=== PATIENT | female | born 2000 | race Caucasian/White ===

== ENCOUNTER 2019-08-11 05:35 | Outpatient (CLI) | payer OTHER ==
[~2019-08-11] VITALS: Ht 165 cm; Wt 63.6 kg
[~2019-08-11 05:35] MED LIST: FAMO20TA5 PO; FAMO40OR3 PO; PRD20T PO; SMXTMP10ML PO
== END 2019-08-11 11:25 | disposition home or self-care (01) ==
LOC: PREOP 05:35
PROVIDERS: ATTEND Otolaryngology Otolaryngology/Facial Plastic Surgery
DX: Z01.818 Encounter for other preprocedural examination (principal)

== ENCOUNTER 2019-08-18 08:26 | Day surgery (SDC) | payer MEDICAID, OTHER ==
[2019-08-18] VITALS (11 sets, daily range): BP systolic 88–131; BP diastolic 46–87
[~2019-08-18] VITALS: Ht 165 cm; Wt 63.6 kg
[2019-08-18] MEDS ORDERED: MIDAZOLAM 2 MG/2 ML (VERSED) VIAL IV ONE (08:45)
[2019-08-18] MEDS: LACTATED RINGERS 1,000 ML IV PRN ×2 (08:52→10:45)
[2019-08-18 09:00] LABS: BASOPHILS % (AUTO) 0 % (0-10); EOSINOPHILS # (AUTO) 0.1 10^3/uL (0.0-0.3); EOSINOPHILS % (AUTO) 1 % (0-10); HEMATOCRIT 45 % (35-52); HEMOGLOBIN 15.6 G/DL (11.5-16.0); LYMPHOCYTES # (AUTO) 2.6 X 10^3 (1.0-4.0); LYMPHOCYTES % (AUTO) 39 % (12-44); MEAN CORPUSCULAR HEMOGLOBIN 30 PG (25-34); MEAN CORPUSCULAR HGB CONC 34 G/DL (32-36); MEAN CORPUSCULAR VOLUME 86 FL (80-99); MEAN PLATELET VOLUME 10.7 FL (7.4-10.4); MONOCYTES # (AUTO) 0.5 X 10^3 (0.0-1.0); MONOCYTES % (AUTO) 8 % (0-12); NEUTROPHILS # (AUTO) 3.6 X 10^3 (1.8-7.8); NEUTROPHILS % (AUTO) 53 % (42-75); PLATELET COUNT 213 10^3/uL (130-400); RED CELL DISTRIBUTION WIDTH 11.9 % (10.0-14.5); WHITE BLOOD COUNT 6.8 10^3/uL (4.3-11.0)
--- NOTE | 2019-08-18 09:50 | Progress Note-Pre Operative ---
Pre-Operative Progress Note H&P Reviewed The H&P was reviewed, patient examined and no changes noted. Date Seen by Provider: Aug 18, 2019 Time Seen by Provider: 09:15 Date H&P Reviewed: Aug 18, 2019 Time H&P Reviewed: 09:15 Pre-Operative Diagnosis: Rec Tonsillitis MARIELA BARR MD Aug 18, 2019 09:50
[2019-08-18] MEDS ORDERED: fentaNYL INJECTION 100 MCG/2 ML AMP ONE (09:55)
[2019-08-18] MEDS ORDERED: MIDAZOLAM 2 MG/2 ML (VERSED) VIAL ONE (09:56)
[2019-08-18] MEDS ORDERED: DEXAMETHASONE 10 MG/ML (DECADRON) 1 ML VIAL ONE (10:34)
[2019-08-18] MEDS ORDERED: proPOfol 200 MG/20 ML (DIPRIVAN) VIAL IV ONE (10:34)
[2019-08-18] MEDS ORDERED: ONDANSETRON 4 MG/2 ML (SDV) Z0FRAN ONE (10:34)
[2019-08-18] MEDS ORDERED: LIDOCAINE PF 2% 5 ML (XYLOCAINE) VIAL ONE (10:34)
[2019-08-18] MEDS ORDERED: SEVOFLURANE (ULTANE) 15 ML INHAL SOLN ONE (10:41)
[2019-08-18] MEDS ORDERED: NS IV 1000 ML 1,000 ML IV SCH (10:49)
--- NOTE | 2019-08-18 10:49 | Progress Note-Post Operative ---
Post-Operative Progess Note Surgeon (s)/Mail Room Clerk (s) Surgeon MARIELA BARR MD Mail Room Clerk n/a Pre-Operative Diagnosis Rec Tonsillitis Post-Operative Diagnosis same Post-Op Procedure Note Date of Procedure: Aug 18, 2019 Name of Procedure Performed: Tonsillectomy Description & Findings Description and Findings: n/a Anesthesia Type get Estimated Blood Loss minimal Packing none. Specimen(s) collected/removed tonsils MARIELA BARR MD Aug 18, 2019 10:49
[2019-08-18] MEDS ORDERED: APAP 325 MG/10.15 ML LIQ (TYLENOL) UDC PO PRN (11:00)
[2019-08-18] MEDS ORDERED: HYDROcodone/APAP 7.5MG-325 MG/15 ML (LORTAB) UDC PO PRN (11:00)
[2019-08-18] MEDS ORDERED: MEPERIDINE (DEMEROL) INJ 50 MG/ML IVP ONE (11:00)
[2019-08-18] MEDS ORDERED: fentaNYL INJECTION 100 MCG/2 ML AMP IVP ONE (11:00)
[2019-08-18] MEDS ORDERED: ONDANSETRON 4 MG/2 ML (SDV) Z0FRAN IVP PRN (11:00)
[2019-08-18] MEDS ORDERED: morphine INJ 10 MG/ML 1ML (SYR OR VIAL) IVP ONE (11:00)
[2019-08-18] MEDS ORDERED: HYDR15SO8 PO (12:50)
[2019-08-18] MEDS ORDERED: TETRACAINESUCKERS MT (12:50)
[2019-08-18] MEDS ORDERED: AZIT200S47 PO (12:50)
[2019-08-18] MEDS ORDERED: DEXAINTSOL PO (12:50)
== END 2019-08-18 13:35 | disposition home or self-care (01) ==
LOC: SDC 08:26
PROVIDERS: ATTEND Otolaryngology Otolaryngology/Facial Plastic Surgery
DX: J35.01 Chronic tonsillitis (principal); Z88.1 Allergy status to other antibiotic agents
CPT/HCPCS: 36415; 84703; 85025; 88304

== ENCOUNTER 2020-04-29 18:51 | Emergency (ER) | payer SELFPAY ==
[~2020-04-29] VITALS: Ht 166 cm; Wt 62.0 kg
[~2020-04-29 18:51] MED LIST changes: +AZIT200S47 PO; +DEXAINTSOL PO; +HYDR15SO8 PO; +TETRACAINESUCKERS MT
--- NOTE | 2020-04-29 19:11 | ED Headache ---
General Chief Complaint: Head/Cervical Problems Stated Complaint: MIGRAINE;NAUSEA;FATIGUE Nursing Triage Note: PT STATES SHE HAS HAD A MIGRAINE SINCE 04/08, HX OF MIGRAINES Nursing Sepsis Screen: No Definite Risk Source: patient Exam Limitations: no limitations History of Present Illness Date Seen by Provider: Apr 29, 2020 Time Seen by Provider: 19:09 Initial Comments Migraine headache since 04/08. She has a history of migraines and would typically get them less than once a month. Since April 08 however this particular migraine seems to have not gone away. No fever no chills no visual symptoms but she does report nausea and vomiting. No cough no shortness of breath she does not have a primary care provider. She has been to to urgent cares but has been unable to find a solution for these migraines. Timing/Duration: 1 week, other Severity/Quality: moderate Prior Headaches/Recent Trauma: no recent headache/trauma Associated Symptoms: denies symptoms Allergies and Home Medications Allergies Coded Allergies: amoxicillin (Verified Allergy, Mild, HIVES, 08/11/19) Home Medications Azithromycin 200 Mg/5 Ml Susp.recon, 1 TSP PO DAILY Prescribed by: JOSE C DOWNING on 08/18/19 1250 Butalbital/Aspirin/Caffeine 1 Each Capsule, 1 EACH PO Q4H PRN for PAIN-SEVERE (8-10) Prescribed by: SMILEY STALLWORTH on 04/29/201951 Dexamethasone 1 Mg/1 Ml Keyonna, 2 TSP PO DAILY PRN for PAIN Mix 4MG/2.5CC water Prescribed by: JOSE C DOWNING on 08/18/19 1250 Hydrocodone/Acetaminophen 15 Ml Solution, 1.5 TSP PO Q4H 8 OZ BOTTLE Prescribed by: JOSE C DOWNING on 08/18/19 1250 Tetracaine Sucker Ea, 1 EA MT UD PRN for PAIN Tetracain Suckers These suckers are custom made and require a prescription. Moisten the sucker first and then suck on it gently as far back in the mouth as possible for 2-3 days. You can repeadt it in about an hour. This will take the edge off but not completely numb the throat. Prescribed by: JOSE C DOWNING on 08/18/19 1250 Patient Home Medication List Home Medication List Reviewed: Yes Review of Systems Review of Systems Constitutional: see HPI; No chills, No fever Eyes: No Symptoms Reported; Denies Blindness, Denies Blurred Vision, Denies Decreased Acuity Ears, Nose, Mouth, Throat: no symptoms reported Respiratory: see HPI; No short of breath Genitourinary: no symptoms reported Musculoskeletal: no symptoms reported Skin: no symptoms reported Psychiatric/Neurological: No Symptoms Reported Past Cgjrtfd-Xmdrlc-Agnscp Hx Patient Social History 2nd Hand Smoke Exposure: No Recent Foreign Travel: No Contact w/Someone Who Travel: No Recent Infectious Disease Expo: No Recent Hopitalizations: No Seasonal Allergies Seasonal Allergies: No Past Medical History Surgeries: Yes (WISDOM TEETH) Respiratory: No Cardiac: No Neurological: No : No Last Menstrual Period: Apr 19, 2020 Reproductive Disorders: No Sexually Transmitted Disease: No HIV/AIDS: No Genitourinary: No Gastrointestinal: No Musculoskeletal: No Endocrine: No HEENT: Yes (CONTACTS ) Cancer: No Psychosocial: No Integumentary: No Blood Disorders: No Adverse Reaction/Blood Tranf: No (N/A) Physical Exam Vital Signs Vital Signs - First Documented 04/29/20 19:04 Temp 36.2 Pulse 111 Resp 20 B/P (MAP) 134/96 (109) Pulse Ox 98 O2 Delivery Room Air Capillary Refill : Less Than 3 Seconds Height, Weight, BMI Height: 5'3" Weight: 120lbs. oz. [id number]; 22.00 BMI Method:Stated General Appearance: WD/WN, no apparent distress HEENT: PERRL/EOMI, normal ENT inspection Respiratory: normal breath sounds, no respiratory distress, no accessory muscle use Extremities: normal range of motion, non-tender Crainal Nerves: normal hearing, normal speech, PERRL (I think the last when I did was Topamax) Skin: normal color, warm/dry Progress/Results/Core Measures Results/Orders Lab Results Laboratory Tests Test 04/29/20 19:10 Range/Units White Blood Count 7.9 4.3-11.0 10^3/uL Red Blood Count 5.02 4.35-5.85 10^6/uL Hemoglobin 14.8 11.5-16.0 G/DL Hematocrit 41 35-52 % Mean Corpuscular Volume 83 80-99 FL Mean Corpuscular Hemoglobin 30 25-34 PG Mean Corpuscular Hemoglobin Concent 36 32-36 G/DL Red Cell Distribution Width 11.8 10.0-14.5 % Platelet Count 220 130-400 10^3/uL Mean Platelet Volume 10.7 H 7.4-10.4 FL Neutrophils (%) (Auto) 46 42-75 % Lymphocytes (%) (Auto) 44 12-44 % Monocytes (%) (Auto) 8 0-12 % Eosinophils (%) (Auto) 2 0-10 % Basophils (%) (Auto) 0 0-10 % Neutrophils # (Auto) 3.7 1.8-7.8 X 10^3 Lymphocytes # (Auto) 3.5 1.0-4.0 X 10^3 Monocytes # (Auto) 0.6 0.0-1.0 X 10^3 Eosinophils # (Auto) 0.1 0.0-0.3 10^3/uL Basophils # (Auto) 0.0 0.0-0.1 10^3/uL Sodium Level 140 135-145 MMOL/L Potassium Level 3.3 L 3.6-5.0 MMOL/L Chloride Level 104 98-107 MMOL/L Carbon Dioxide Level 25 21-32 MMOL/L Anion Gap 11 5-14 MMOL/L Blood Urea Nitrogen 9 7-18 MG/DL Creatinine 0.90 0.60-1.30 MG/DL Estimat Glomerular Filtration Rate > 60 BUN/Creatinine Ratio 10 Glucose Level 102 70-105 MG/DL Calcium Level 9.8 8.5-10.1 MG/DL Corrected Calcium 8.5-10.1 MG/DL Total Bilirubin 0.4 0.1-1.0 MG/DL Aspartate Amino Transf (AST/SGOT) 17 5-34 U/L Alanine Aminotransferase (ALT/SGPT) 13 0-55 U/L Alkaline Phosphatase 93 40-136 U/L Total Protein 7.6 6.4-8.2 GM/DL Albumin 4.6 H 3.2-4.5 GM/DL Serum Test, Qualitative NEGATIVE NEGATIVE My Orders Orders - SMILEY STALLWORTH APRN Cbc With Automated Diff (04/29/20 19:07) Comprehensive Metabolic Panel (04/29/20 19:07) Ct Head Wo (04/29/20 19:07) Ns Iv 1000 Ml (Sodium Chloride 0.9%) (04/29/20 19:15) Ketorolac Injection (Toradol Injection) (04/29/20 19:15) Prochlorperazine Injection (Compazine In (04/29/20 19:15) Diphenhydramine Injection (Benadryl Inje (04/29/20 19:15) Hcg,Qualitative Serum (04/29/20 19:08) Medications Given in ED Current Medications Medications Dose Ordered Sig/Isabella Route Start Time Stop Time Status Last Admin Dose Admin Diphenhydramine HCl 25 mg ONCE ONCE IVP 04/29/20 19:15 04/29/20 19:16 DC 04/29/20 19:15 25 MG Ketorolac Tromethamine 15 mg ONCE ONCE IVP 04/29/20 19:15 04/29/20 19:16 DC 04/29/20 19:15 15 MG Prochlorperazine Edisylate 5 mg ONCE ONCE IV 04/29/20 19:15 04/29/20 19:16 DC 04/29/20 19:15 5 MG Vital Signs/I&O 04/29/20 19:04 Temp 36.2 Pulse 111 Resp 20 B/P (MAP) 134/96 (109) Pulse Ox 98 O2 Delivery Room Air Blood Pressure Mean: 109 Departure Communication (Admissions) 2017-she states that on arrival her pain was 10 out of 10. Currently she rates it 1 out of 10. She is smiling and alert and states that she feels quite a bit better. We'll have her follow up with Dr. Maria this week as she already has scheduled. I did send in some Fiorinal to use on a when necessary basis in the interim. Impression Primary Impression: Headache Qualified Codes: R51 - Headache Disposition: 01 HOME, SELF-CARE Condition: Stable Departure-Patient Inst. Decision time for Depature: 19:50 Referrals: NO,LOCAL PHYSICIAN (PCP) Primary Care Physician Patient Instructions: Headache, Adult (DC) Add. Discharge Instructions: 1. Follow-up with your regular doctor 2. Use medication as needed 3. Return to ER for any concerns. If you do not have a regular doctor call one of the doctors listed to make an appointment to be seen for follow-up. All discharge instructions reviewed with patient and/or family. Voiced understanding. Scripts Butalbital/Aspirin/Caffeine (Fiorinal 50-325-40 mg Capsule) 1 Each Capsule 1 EACH PO Q4H PRN for PAIN-SEVERE (8-10), #14 CAP Prov: STALLWORTH,PETER J ER[employer]ION CONTROL COORDINATOR 04/29/20 SMILEY STALLWORTH APRN Apr 29, 2020 19:11
[2020-04-29] MEDS ORDERED: KETOROLAC 30 MG/ML VIAL IVP ONE (19:15)
[2020-04-29] MEDS ORDERED: PROCHLORPERAZINE 10 MG/2ML INJ (COMPAZINE) IV ONE (19:15)
[2020-04-29] MEDS ORDERED: diphenhydrAMINE 50 MG/ML INJ (BENADRYL) IVP ONE (19:15)
[2020-04-29] MEDS ORDERED: NS IV 1000 ML 1,000 ML IV SCH (19:15)
[2020-04-29 19:17] LABS: BASOPHILS % (AUTO) 0 % (0-10); EOSINOPHILS # (AUTO) 0.1 10^3/uL (0.0-0.3); EOSINOPHILS % (AUTO) 2 % (0-10); HEMATOCRIT 41 % (35-52); HEMOGLOBIN 14.8 G/DL (11.5-16.0); LYMPHOCYTES # (AUTO) 3.5 X 10^3 (1.0-4.0); LYMPHOCYTES % (AUTO) 44 % (12-44); MEAN CORPUSCULAR HEMOGLOBIN 30 PG (25-34); MEAN CORPUSCULAR HGB CONC 36 G/DL (32-36); MEAN CORPUSCULAR VOLUME 83 FL (80-99); MEAN PLATELET VOLUME 10.7 FL (7.4-10.4); MONOCYTES # (AUTO) 0.6 X 10^3 (0.0-1.0); MONOCYTES % (AUTO) 8 % (0-12); NEUTROPHILS # (AUTO) 3.7 X 10^3 (1.8-7.8); NEUTROPHILS % (AUTO) 46 % (42-75); PLATELET COUNT 220 10^3/uL (130-400); WHITE BLOOD COUNT 7.9 10^3/uL (4.3-11.0)
[2020-04-29 19:37] LABS: ALANINE AMINOTRANSFERASE 13 U/L (0-55); ALBUMIN 4.6 GM/DL (3.2-4.5); ALKALINE PHOSPHATASE 93 U/L (40-136); BILIRUBIN,TOTAL 0.4 MG/DL (0.1-1.0); BUN/CREATININE RATIO 10; CALCIUM 9.8 MG/DL (8.5-10.1); CARBON DIOXIDE 25 MMOL/L (21-32); CHLORIDE 104 MMOL/L (98-107); GFR ESTIMATED > 60; GLUCOSE 102 MG/DL (70-105); POTASSIUM 3.3 MMOL/L (3.6-5.0); SODIUM 140 MMOL/L (135-145); TOTAL PROTEIN 7.6 GM/DL (6.4-8.2)
--- NOTE | 2020-04-29 19:48 | Diagnostic Imaging Report ---
PROCEDURE: CT head without contrast. TECHNIQUE: Multiple contiguous axial images were obtained through the brain without the use of intravenous contrast. Auto Exposure Controls were utilized during the CT exam to meet ALARA standards for radiation dose reduction. INDICATION: Headache x1 month. COMPARISON: None. FINDINGS: No intracranial hemorrhage, mass effect, hydrocephalus or extra-axial fluid collections. No CT evidence of a territorial infarction. Osseous structures are intact. Mild mucosal thickening in the right maxillary sinus. The mastoids are clear. IMPRESSION: No acute intracranial CT findings. Dictated by: Dictated on workstation # [id number]
[2020-04-29] MEDS ORDERED: BUTA1CAP17 PO (19:51)
[2020-04-29 20:15] VITALS: BP 105/76
== END 2020-04-29 20:22 | disposition home or self-care (01) ==
LOC: EDUNIT# 18:51 → ER 18:52
DX: R51 Headache (principal); Z88.1 Allergy status to other antibiotic agents
CPT/HCPCS: 36415; 70450; 80053; 84703; 85025